=== PATIENT | female | born 1980 | race African-American/Black ===

== ENCOUNTER 2019-02-03 17:05 | Emergency (ER) | payer SELFPAY ==
[~2019-02-03] VITALS: Ht 170.2 cm; Wt 115.7 kg
[2019-02-03] MEDS ORDERED: fentaNYL INJECTION 100 MCG/2 ML AMP IM ONE (17:30)
[2019-02-03] MEDS ORDERED: methylPREDNISolone 125 MG (Solu-MEDROL) VIAL IM ONE (17:30)
--- NOTE | 2019-02-03 17:34 | ED Back Pain ---
General Chief Complaint: Back Problems Stated Complaint: BACK AND LEG PAIN Source of Information: Patient Exam Limitations: No Limitations History of Present Illness Date Seen by Provider: February 03, 2019 Time Seen by Provider: 17:30 Initial Comments This 38-year-old female presents with complaint of severe low back pain radiating into her right leg. The patient has had a CAT scan to her low back which demonstrated 3 bulging discs in the lumbar spine region. The patient is tried pain medication and muscle relaxants without permanent improvement. She is in the process of being seen by the neurosurgeons at . Her personal physician, Dr. Trevino, suggested a steroid shot for which she has come to the emergency department. Dr. Trevino will see the patient a week. The patient denies paralysis, urinary retention, or unremitting constipation. Allergies and Home Medications Allergies Coded Allergies: No Known Drug Allergies (Unverified , 02/03/19) Patient Home Medication List Home Medication List Reviewed: Yes Review of Systems Constitutional: No chills EENTM: no symptoms reported Respiratory: No cough Cardiovascular: No chest pain Gastrointestinal: constipation Genitourinary: No decreased output Musculoskeletal: see HPI, back pain Skin: No rash Psychiatric/Neurological: No Symptoms Reported Past Tjbcvux-Hkaons-Rcmipt Hx Past Med/Social Hx: Reviewed Nursing Past Med/Soc Hx Patient Social History Recent Foreign Travel: No Contact w/Someone Who Travel: No Physical Exam Vital Signs Capillary Refill : Height, Weight, BMI Height: '" Weight: lbs. oz. kg; BMI Method: General Appearance: WD/WN, Mild Distress HEENT: Normal ENT Inspection Neck: Normal Inspection Cardiovascular: Regular Rate, Rhythm Respiratory: Lungs Clear Gastrointestinal: Normal Bowel Sounds, Non Tender, Soft Extremity: Normal Inspection, Normal Range of Motion Neurologic/Psychiatric: Alert, Oriented x3, No Motor/Sensory Deficits, Normal Mood/Affect Skin: Normal Color, Warm/Dry Progress/Results/Core Measures Results/Orders My Orders Orders - LUANA YANEZ MD Methylprednisolone Sod Succ (Solu-Medrol (02/03/19 17:30) Fentanyl Injection (Sublimaze Injection (02/03/19 17:30) Progress Progress Note : Time: 17:33 Progress Note Patient was given 125 mg of Solu-Medrol and 50 g of fentanyl IM. Patient was placed on prednisone 40 mg daily for the next week until she can follow-up with her primary care physician. She was given Ultram 5200 mg every 4-6 hours for her pain. She was asked to return if any problems or questions. Departure Impression Primary Impression: Back pain Qualified Codes: M54.41 - Lumbago with sciatica, right side; G89.29 - Other chronic pain Disposition: HOME, SELF-CARE Condition: Improved Departure-Patient Inst. Decision time for Depature: 17:35 Referrals: ERIKA TREVINO MD (PCP) Primary Care Physician Patient Instructions: Low Back Pain (DC) Add. Discharge Instructions: Prednisone and Ultram as prescribed. Close follow-up with Dr. Trevino as scheduled next Friday. Return if any problems or questions. All discharge instructions reviewed with patient and/or family. Voiced understanding. Scripts Prednisone (Prednisone) 20 Mg Tab 40 MG PO DAILY for 7 Days, #6 TAB 0 Refills Prov: LUANA YANEZ MD 02/03/19 Tramadol HCl (Ultram) 50 Mg Tablet 50 MG PO Q4H PRN for PAIN-MODERATE TO SEVERE, #30 TAB Prov: LUANA YANEZ MD 02/03/19 LUANA YANEZ MD February 03, 2019 17:34
[2019-02-03] MEDS ORDERED: TRAM-42 PO (17:37)
[2019-02-03] MEDS ORDERED: PRD20T PO (17:37)
[2019-02-03 17:47] VITALS: BP 146/107
== END 2019-02-03 17:47 | disposition home or self-care (01) ==
LOC: ER FS 17:07
DX: M54.5 Low back pain (principal)
CPT/HCPCS: 96372; 99284

== ENCOUNTER 2019-03-03 11:00 | Emergency (ER) | payer MEDICAID, OTHER ==
[~2019-03-03] VITALS: Ht 172.7 cm; Wt 115.2 kg
[~2019-03-03 11:00] MED LIST: PRD20T PO; TRAM-42 PO
--- OUTSIDE RECORDS SUMMARY | 2019-03-03 11:12 | XMS REPORT | Continuity of Care Document ---
Author Organization Unknown Address Unknown Allergies Active Description Code Type Severity Reaction Onset Reported/Identified Relationship to Patient Clinical Status Yes No Known Drug Allergies [id number] Drug Allergy Unknown N/A 02/03/2019 Medications There is no data. Problems Date Dx Coded Attending Type Code Diagnosis Diagnosed By 02/05/2019 BEAU CHAUDHARY, LUANA Parada Ot M54.5 LOW BACK PAIN Procedures There is no data. Results There is no data. Encounters ACCT No. Visit Date/Time Discharge Status Pt. Type Provider Facility Loc./Unit Complaint [id number] 02/10/2019 09:30:00 02/10/2019 23:59:59 CLS Outpatient INGA, LILIANA Estrada [facility] [id number] 02/03/2019 17:07:00 02/03/2019 17:47:00 DIS Outpatient BEAU CHAUDHARY, LUANA Parada [facility] ER FS BACK AND LEG PAIN
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
[2019-03-03] MEDS ORDERED: LIDOCAINE/EPI 2% 1:100,00 (XYLOCAINE) 20 ML VIAL INJ ONE (11:30)
[2019-03-03] MEDS ORDERED: BUPIVACAINE 0.5% 30 ML (SENSORCAINE) VIAL INJ ONE (11:30)
[2019-03-03] MEDS ORDERED: methylPREDNISolone 40 MG/ML (DEPO MEDROL) VIAL IA ONE (11:30)
[2019-03-03 11:38] LABS: CLARITY,URINE CLEAR; COLOR,URINE YELLOW; PH,URINE 7.5 (5-9)
[2019-03-03 11:39] LABS: BACTERIA,URINE NEGATIVE /HPF; BILIRUBIN,URINE NEGATIVE (NEGATIVE); GLUCOSE, URINE (UA) NEGATIVE (NEGATIVE); KETONES,URINE NEGATIVE (NEGATIVE); LEUKOCYTE ESTERASE ,URINE NEGATIVE (NEGATIVE); NITRITE,URINE NEGATIVE (NEGATIVE); PROTEIN,URINE NEGATIVE (NEGATIVE); SQUAMOUS EPITHELIAL CELL,UR 0-2 /HPF; WBC,URINE 0-2 /HPF
[2019-03-03] MEDS ORDERED: PRD20T PO (11:48)
[2019-03-03] MEDS ORDERED: CYCL10TA9 PO (11:48)
[2019-03-03 11:58] VITALS: BP 153/107
== END 2019-03-03 11:58 | disposition home or self-care (01) ==
LOC: EDUNIT# 11:00 → ER FS 11:02
DX: M54.41 Lumbago with sciatica, right side (principal); F17.210 Nicotine dependence, cigarettes, uncomplicated; Z98.890 Other specified postprocedural states
CPT/HCPCS: 81000; 84703; 96372; 99284

== ENCOUNTER 2019-04-01 00:04 | Emergency (ER) | payer MEDICAID ==
[~2019-04-01] VITALS: Ht 170.2 cm; Wt 117.9 kg
[~2019-04-01 00:04] MED LIST changes: +CYCL10TA9 PO
--- OUTSIDE RECORDS SUMMARY | 2019-04-01 00:08 | XMS REPORT | Continuity of Care Document ---
Author Organization Unknown Address Unknown Allergies Active Description Code Type Severity Reaction Onset Reported/Identified Relationship to Patient Clinical Status Yes No Known Drug Allergies [id number] Drug Allergy Unknown N/A 02/03/2019 Medications There is no data. Problems Date Dx Coded Attending Type Code Diagnosis Diagnosed By 02/03/2019 LUANA YANEZ MD Ot M54.5 LOW BACK PAIN 02/05/2019 LUANA YANEZ MD Ot M54.5 LOW BACK PAIN 03/03/2019 JOHAN RODRIGUES MD J Ot F17.210 NICOTINE DEPENDENCE, CIGARETTES, UNCOMPL 03/03/2019 JOHAN RODRIGUES MD Ot M54.41 LUMBAGO WITH SCIATICA, RIGHT SIDE 03/03/2019 JOHAN RODRIGUES MD Ot M54.5 LOW BACK PAIN 03/03/2019 JOHAN RODRIGUES MD Ot Z98.890 OTHER SPECIFIED POSTPROCEDURAL STATES 03/05/2019 JOHAN RODRIGUES MD Ot F17.210 NICOTINE DEPENDENCE, CIGARETTES, UNCOMPL 03/05/2019 JOHAN RODRIGUES MD Ot M54.41 LUMBAGO WITH SCIATICA, RIGHT SIDE 03/05/2019 JOHAN RODRIGUES MD Ot M54.5 LOW BACK PAIN 03/05/2019 JOHAN RODRIGUES MD J Ot Z98.890 OTHER SPECIFIED POSTPROCEDURAL STATES Procedures There is no data. Results Test Result Range Urine beta human chorionic gonadotropin (hCG) measurement - 03/03/19 11:05 Urine beta human chorionic gonadotropin (hCG) measurement NEGATIVE NEGATIVE Complete urinalysis with reflex to culture - 03/03/19 11:05 Urine color determination YELLOW NRG Urine clarity determination CLEAR NRG Urine pH measurement by test strip 7.5 5-9 Specific gravity of urine by test strip 1.015 1.016-1.022 Urine protein assay by test strip, semi-quantitative NEGATIVE NEGATIVE Urine glucose detection by automated test strip NEGATIVE NEGATIVE Erythrocytes detection in urine sediment by light microscopy NEGATIVE NEGATIVE Urine ketones detection by automated test strip NEGATIVE NEGATIVE Urine nitrite detection by test strip NEGATIVE NEGATIVE Urine total bilirubin detection by test strip NEGATIVE NEGATIVE Urine urobilinogen measurement by automated test strip (mass/volume) 1.0 mg/dL NORMAL Urine leukocyte esterase detection by dipstick NEGATIVE NEGATIVE Automated urine sediment erythrocyte count by microscopy (number/high power field) NONE NRG Automated urine sediment leukocyte count by microscopy (number/high power field) [HPF] NRG Bacteria detection in urine sediment by light microscopy NEGATIVE NRG Squamous epithelial cells detection in urine sediment by light microscopy 0-2 NRG Crystals detection in urine sediment by light microscopy NONE NRG Casts detection in urine sediment by light microscopy NONE NRG Mucus detection in urine sediment by light microscopy SMALL NRG Complete urinalysis with reflex to culture NO NRG GC/CHLAMYDIA (SWAB OR URINE)-RAPID - 03/04/19 16:38 CHLAMYDIA TRACHOMATIS RNA, TMA NOT DETECTED NOT DETECTED NEISSERIA GONORRHOEAE RNA, TMA NOT DETECTED NOT DETECTED COMMENT NRG Encounters ACCT No. Visit Date/Time Discharge Status Pt. Type Provider Facility Loc./Unit Complaint [id number] 03/22/2019 16:00:00 03/22/2019 23:59:59 [facility] Outpatient SELF, LILIANA Estrada [facility] [id number] 03/04/2019 16:15:00 Document Registration [id number] 03/03/2019 11:02:00 03/03/2019 11:58:00 DIS Emergency JOHAN RODRIGUES MD Via [facility] ER FS BACK PAIN [id number] 02/03/2019 17:07:00 02/03/2019 17:47:00 DIS Emergency LUANA YANEZ MD Via [facility] ER FS BACK AND LEG PAIN [id number] 04/01/2019 00:05:00 ACT Emergency ELMA CARD DO Via [facility] ER FS BACK PAIN, RT LEG PAIN
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
[2019-04-01] MEDS ORDERED: oxyCODONE/APAP 5/325MG (PERCOCET 5) TABLET ONE (00:29)
[2019-04-01] MEDS ORDERED: oxyCODONE/APAP 10/325MG (PERCOCET 10) TABLET PO ONE (00:30)
[2019-04-01] MEDS ORDERED: METH4TAB PO (00:30)
--- NOTE | 2019-04-01 00:31 | ED Back Pain ---
General Chief Complaint: Back Problems Stated Complaint: BACK PAIN, RT LEG PAIN Nursing Triage Note: Patient is complaining of back pain that radiates down her right leg. Patient is tearful and states she was at physical therapy today for a bulging disc. Pain has progressively gotten worse since then. Patient has taken Ibuprofen, Flexiril and Tramadol NUTRITION INSTRUCTOR with no relief. Nursing Sepsis Screen: No Definite Risk Source of Information: Patient Exam Limitations: No Limitations History of Present Illness Date Seen by Provider: Apr 01, 2019 Time Seen by Provider: 00:15 Initial Comments Patient is a 38 year-old female with history of chronic back pain with herniated disks. Patient takes tramadol, ibuprofen and muscle relaxers for treatment of back pain. This morning she completed physical therapy for the first time and reports persistent right lower sacroiliac pain since that time. Pain is worse with palpation and movement and ambulation. Pain is nonradiating. It is not associated motor weakness or loss of sensation. No other acute symptoms or complaints. Timing/Duration: Getting Worse, Other Pain/Injury Location: Back Modifying Factors: Improves With Pain Medication, Improves With Rest Associated Symptoms: muscle spasms; No tingling in legs/feet, No sensory/motor loss; lower back pain; No loss of bladder control, No loss of bowel control Allergies and Home Medications Allergies Coded Allergies: No Known Drug Allergies (Unverified , 02/03/19) Home Medications Cyclobenzaprine HCl 10 Mg Tablet, 10 MG PO Q8H PRN for SPASMS Prescribed by: JOHAN RODRIGUES on 03/03/19 1148 Prednisone 20 Mg Tab, 40 MG PO DAILY Prescribed by: LUANA YANEZ MD on 02/03/19 1730 Prednisone 20 Mg Tab, 40 MG PO DAILY Prescribed by: JOHAN RODRIGUES on 03/03/19 1148 Tramadol HCl 50 Mg Tablet, 50 MG PO Q4H PRN for PAIN-MODERATE TO SEVERE Prescribed by: LUANA YANEZ MD on 02/03/19 1736 Patient Home Medication List Home Medication List Reviewed: Yes Review of Systems Constitutional: no symptoms reported EENTM: no symptoms reported Respiratory: no symptoms reported Cardiovascular: no symptoms reported Gastrointestinal: no symptoms reported Genitourinary: no symptoms reported Musculoskeletal: back pain Skin: no symptoms reported Psychiatric/Neurological: Anxiety Past Pgwhvew-Ohnlmh-Ndevmt Hx Patient Social History Alcohol Use: Denies Use Recreational Drug Use: No Smoking Status: Current Everyday Smoker Type Used: Cigarettes 2nd Hand Smoke Exposure: Yes Recent Foreign Travel: No Contact w/Someone Who Travel: No Recent Infectious Disease Expo: No Recent Hopitalizations: No Physical Abuse: No Sexual Abuse: No Mistreated: No Fear: No Seasonal Allergies Seasonal Allergies: No Past Medical History Surgeries: Yes Section Respiratory: No Cardiac: No Neurological: No Genitourinary: No Gastrointestinal: No Musculoskeletal: No Chronic Back Pain Endocrine: No HEENT: No Cancer: No Psychosocial: No Integumentary: No Blood Disorders: No Adverse Reaction/Blood Tranf: No Physical Exam Vital Signs Vital Signs - First Documented 04/01/19 00:09 Temp 97.2 Pulse 113 Resp 26 B/P (MAP) 190/100 (130) Pulse Ox 97 O2 Delivery Room Air Capillary Refill : Less Than 3 Seconds Height, Weight, BMI Height: 5'7.00" Weight: 260lbs. 0oz. 117.220622pg; BMI Method:Stated General Appearance: Anxious, Mild Distress HEENT: PERRL/EOMI Neck: Normal Inspection, Supple Respiratory: Lungs Clear Back: No CVA Tenderness; No CVA Tenderness (L); Decreased Range of Motion, Muscle Spasm; No Vertebral Tenderness, No Other (right sacroiliac pain, tenderness, negative straight leg raising) Extremity: Normal Capillary Refill, Normal Inspection Neurologic/Psychiatric: Alert, Oriented x3 Progress/Results/Core Measures Results/Orders My Orders Orders - ELMA CARD DO Oxycodone/Acet 10/325mg Tablet (Percocet (04/01/19 00:30) Vital Signs/I&O 04/01/19 00:09 Temp 97.2 Pulse 113 Resp 26 B/P (MAP) 190/100 (130) Pulse Ox 97 O2 Delivery Room Air Blood Pressure Mean: 130 Departure Communication (Admissions) Exacerbation of chronic back pain. Percocet given. Will discharge home with Medrol Dosepak with instructions to follow up with PCP prior to resuming physical therapy Impression Primary Impression: Acute lumbar back pain Disposition: HOME, SELF-CARE Condition: Improved Departure-Patient Inst. Referrals: ERIKA TREVINO MD (PCP/Family) Primary Care Physician Patient Instructions: Low Back Pain (DC) Add. Discharge Instructions: Please fill Medrol Dosepak tomorrow morning. Contact your PCP with instructions regarding when to resume physical therapy. All discharge instructions reviewed with patient and/or family. Voiced unders tanding. Scripts Methylprednisolone (Medrol) 4 Mg Tab.ds.pk 4 MG PO UD for 6 Days, #21 PKG PER DOSE PACK INSTRUCTIONS Prov: ELMA CARD DO 04/01/19 ELMA CARD DO Apr 01, 2019 00:31
[2019-04-01 00:38] VITALS: BP 162/92
[2019-04-01] MEDS ORDERED: oxyCODONE/APAP 5/325MG (PERCOCET 5) TABLET PO ONE (00:45)
== END 2019-04-01 00:37 | disposition home or self-care (01) ==
LOC: EDUNIT# 00:04 → ER FS 00:05
DX: M54.5 Low back pain (principal); G89.29 Other chronic pain; M51.36 Other intervertebral disc degeneration, lumbar region; F17.210 Nicotine dependence, cigarettes, uncomplicated
CPT/HCPCS: 99283

== ENCOUNTER 2019-04-09 14:20 | Emergency (ER) | payer MEDICAID ==
[~2019-04-09] VITALS: Ht 170.2 cm; Wt 118.4 kg
[~2019-04-09 14:20] MED LIST changes: +METH4TAB PO
[2019-04-09] MEDS ORDERED: morphine INJ 10 MG/ML 1ML (SYR OR VIAL) IM STA (15:27)
[2019-04-09] MEDS ORDERED: KETOROLAC 60 MG/2 ML VIAL IM ONE (15:30)
[2019-04-09] MEDS ORDERED: DIAZEPAM 5 MG (VALIUM) TABLET PO SCH (15:30)
--- NOTE | 2019-04-09 15:43 | ED Back Pain ---
General Chief Complaint: Back Problems Stated Complaint: BACK/RT LEG PAIN Nursing Triage Note: Patient is complaining of back pain that is radiating down R leg. Has been seeing dr hutson at and has an appointment to see him again next week. Just finished two weeks of PT for her back and states the next thing dr hutson is going to do is epidural shots. Pain is currently rated at 10/10 and has taken flexeril, ibuprofen, and tramadol with no relief. Nursing Sepsis Screen: No Definite Risk History of Present Illness Date Seen by Provider: Apr 09, 2019 Time Seen by Provider: 15:20 Initial Comments Patient is a 38-year-old female who presents to the emergency department today complaining of severe right-sided low back pain. The patient has a history of chronic low back pain. She is normally followed at [facility]. She has recently undergone physical therapy which she states seems to worsen her symptoms. She has frequent ER visits for her uncontrolled pain. She was seen by her doctor yesterday and given a shot of Toradol which did improve her symptoms temporarily. Today, she took Flexeril, tramadol, and ibuprofen and states these did not improve her pain symptoms. She complains of pain over the right buttock. She also describes some symptoms over the right side consistent with meralgia paresthetica. No new symptoms other than pain. No new numbness, tingling, weakness. No fever. No difficulty with elimination. Patient no longer has menstrual cycles over the last 2 years. Allergies and Home Medications Allergies Coded Allergies: No Known Drug Allergies (Unverified , 02/03/19) Home Medications Cyclobenzaprine HCl 10 Mg Tablet, 10 MG PO Q8H PRN for SPASMS Prescribed by: JOHAN RODRIGUES on 03/03/19 1148 Diazepam 5 Mg Tablet, 5 MG PO BID PRN PRN for MUSCLE SPASMS Prescribed by: JOSÉ MIGUEL WAGONER on 04/09/19 1612 Methylprednisolone 4 Mg Tab.ds.pk, 4 MG PO UD PER DOSE PACK INSTRUCTIONS Prescribed by: ELMA CARD on 04/01/19 0030 Oxycodone HCl/Acetaminophen 1 Each Tablet, 2 TAB PO Q6H PRN for PAIN-SEVERE Prescribed by: JOSÉ MIGUEL WAGONER on 04/09/19 1612 Prednisone 20 Mg Tab, 40 MG PO DAILY Prescribed by: LUANA YANEZ MD on 02/03/19 1737 Prednisone 20 Mg Tab, 40 MG PO DAILY Prescribed by: JOHAN RODRIGUES on 03/03/19 1148 Tramadol HCl 50 Mg Tablet, 50 MG PO Q4H PRN for PAIN-MODERATE TO SEVERE Prescribed by: LUANA YANEZ MD on 02/03/19 1737 Patient Home Medication List Home Medication List Reviewed: Yes Review of Systems Constitutional: no symptoms reported EENTM: no symptoms reported Respiratory: no symptoms reported Cardiovascular: no symptoms reported Gastrointestinal: no symptoms reported Genitourinary: no symptoms reported : No Musculoskeletal: see HPI Skin: no symptoms reported Psychiatric/Neurological: No Symptoms Reported Past Dgkfrxw-Odytth-Guugla Hx Patient Social History Alcohol Use: Denies Use Recreational Drug Use: No Smoking Status: Current Everyday Smoker Type Used: Cigarettes 2nd Hand Smoke Exposure: Yes Recent Foreign Travel: No Contact w/Someone Who Travel: No Recent Infectious Disease Expo: No Recent Hopitalizations: No Physical Abuse: No Sexual Abuse: No Mistreated: No Fear: No Seasonal Allergies Seasonal Allergies: No Past Medical History Surgeries: Yes (metal plates in jaw) Section, Orthopedic Respiratory: No Cardiac: No Neurological: No Genitourinary: No Gastrointestinal: No Musculoskeletal: Yes Chronic Back Pain Endocrine: No HEENT: No Cancer: No Psychosocial: No Integumentary: No Blood Disorders: No Adverse Reaction/Blood Tranf: No Physical Exam Vital Signs Vital Signs - First Documented 04/09/19 14:49 Temp 97.4 Pulse 115 Resp 18 B/P (MAP) 138/108 (118) Pulse Ox 98 Capillary Refill : Less Than 3 Seconds Height, Weight, BMI Height: 5'7.00" Weight: 261lbs. 0oz. 118.225882yf; BMI Method:Stated General Appearance: WD/WN, Obese, Other (significant distress with antalgic gait and antalgic movements) HEENT: PERRL/EOMI Neck: Full Range of Motion Cardiovascular: Regular Rate, Rhythm Respiratory: Lungs Clear Back: Normal Inspection, No CVA Tenderness, No Vertebral Tenderness Progress/Results/Core Measures Results/Orders My Orders Orders - JOSÉ MIGUEL WAGONER DO Ketorolac Injection (Toradol Injection) (04/09/19 15:30) Morphine Injection (Morphine Injection (04/09/19 15:27) Diazepam Tablet (Valium Tablet) (04/09/19 15:30) Medications Given in ED Current Medications Medications Dose Ordered Sig/Billy Route Start Time Stop Time Status Last Admin Dose Admin Ketorolac Tromethamine 60 mg ONCE ONCE IM 04/09/19 15:30 04/09/19 15:31 DC 04/09/19 15:49 60 MG Vital Signs/I&O 04/09/19 14:49 Temp 97.4 Pulse 115 Resp 18 B/P (MAP) 138/108 (118) Pulse Ox 98 Blood Pressure Mean: 118 Progress Progress Note : Time: 15:30 Progress Note Patient is seen and examined. She does seem to have significant pain. She has no midline spinal tenderness to palpation. She does have palpable muscle spasm and pain over the lower right lumbar area. She has no red flag findings on her history of present illness or review of systems or physical exam. Patient presents with classic acute on chronic low back pain. She did not have any new trauma or injury. Her medications at home have not been working. In the ER, I ordered for her to have a dose of intramuscular morphine and 1 by mouth Valium. We will give her another injection of Toradol here as well. Of note, this patient is taking both Flexeril and tramadol. Both of these medications can increase risk for seizure and the seizure risk is compounded when they are both taken together. I advised the patient to stop using his medications simultaneously. 16:10: Patient is currently beginning to feel improved. She will contact a friend to pick her up for a ride home. Plan is for discharge home. The patient's current medication regimen is not working for her. I am giving her some Percocet and Valium to use at home. I advised her of the risks of these medications including oversedation as well as addiction. I advised her to only use these medications when her pain was so severe that she felt the need to come to the ER in an attempt to reduce her ER visits. Otherwise, she was recommended to follow up with her primary care doctor for ongoing management. The patient has been treated frequently with steroids and I did not give her any today. She does continue to take ibuprofen. All of her questions were answered prior to discharge home and she was subjectively feeling better at the time of discharge. Departure Impression Primary Impression: Back pain Disposition: 01 HOME, SELF-CARE Condition: Improved Departure-Patient Inst. Referrals: ERIKA TREVINO MD (PCP/Family) Primary Care Physician Scripts Diazepam (Valium) 5 Mg Tablet 5 MG PO BID PRN PRN for MUSCLE SPASMS, #20 TAB 0 Refills Prov: JOSÉ MIGUEL WAGONER DO 04/09/19 Oxycodone HCl/Acetaminophen (Percocet 5-325 mg Tablet) 1 Each Tablet 2 TAB PO Q6H PRN for PAIN-SEVERE MDD 6 for 7 Days, #30 TAB 0 Refills Prov: JOSÉ MIGUEL WAGONER DO 04/09/19 JOSÉ MIGUEL WAGONER DO Apr 09, 2019 15:43
[2019-04-09] MEDS ORDERED: OXYC-199 PO (16:12)
[2019-04-09] MEDS ORDERED: DIAZ5TAB PO (16:12)
[2019-04-09 16:35] VITALS: BP 122/76
--- OUTSIDE RECORDS SUMMARY | 2019-04-09 20:53 | XMS REPORT | Continuity of Care Document ---
Author Organization Unknown Address Unknown Allergies Active Description Code Type Severity Reaction Onset Reported/Identified Relationship to Patient Clinical Status Yes No Known Drug Allergies [id number] Drug Allergy Unknown N/A 02/03/2019 Medications There is no data. Problems Date Dx Coded Attending Type Code Diagnosis Diagnosed By 02/03/2019 LUANA YANEZ MD Ot M54.5 LOW BACK PAIN 02/05/2019 LUANA YANEZ MD Ot M54.5 LOW BACK PAIN 03/03/2019 JOHAN RODRIGUES MD Ot F17.210 NICOTINE DEPENDENCE, CIGARETTES, UNCOMPL 03/03/2019 [...] MD Ot M54.5 LOW BACK PAIN 03/05/2019 LILIA CHAUDHARY, JOHAN Estrada Ot Z98.890 OTHER SPECIFIED POSTPROCEDURAL STATES 04/07/2019 ELMA CARD DO Ot F17.210 NICOTINE DEPENDENCE, CIGARETTES, UNCOMPL 04/07/2019 ELMA CARD DO Ot G89.29 OTHER CHRONIC PAIN 04/07/2019 ELMA CARD DO Ot M51.36 OTHER INTERVERTEBRAL DISC DEGENERATION, 04/07/2019 ELMA CARD DO, Ot M54.5 LOW BACK PAIN Procedures There is no data. Results Test [...] Status Pt. Type Provider Facility Loc./Unit Complaint [id number] 04/08/2019 14:00:00 [facility] [id number] 03/04/2019 16:15:00 Document Registration [id number] 04/09/2019 14:22:00 04/09/2019 16:35:00 DIS Emergency JOSÉ MIGUEL WAGONER DO [facility] ER FS BACK/RT LEG PAIN [id number] 04/01/2019 00:05:00 04/01/2019 00:37:00 DIS Outpatient ELMA CARD DO [facility] ER FS BACK PAIN, RT LEG PAIN [id number] 03/03/2019 11:02:00 03/03/2019 11:58:00 DIS Emergency JOHAN RODRIGUES MD [facility] ER FS BACK PAIN [id number] 02/03/2019 17:07:00 02/03/2019 17:47:00 DIS Emergency BEAU CHAUDHARY, LUANA Parada [facility] ER FS BACK AND LEG PAIN
[2019-04-11] MEDS ORDERED: PHENTERMINE HCL (17:31)
== END 2019-04-09 16:35 | disposition home or self-care (01) ==
LOC: EDUNIT# 14:20 → ER FS 14:22
DX: M54.5 Low back pain (principal); F17.210 Nicotine dependence, cigarettes, uncomplicated; Z79.52 Long term (current) use of systemic steroids
CPT/HCPCS: 96372; 99284

== ENCOUNTER 2019-04-11 14:12 | Emergency (ER) | payer MEDICAID | END 2019-04-11 16:30 | disposition home or self-care (01) | LOC: ER FS 14:12 ==

== ENCOUNTER → 2020-01-10 | Outpatient (CLI) | payer MEDICAID ==
[~2020-01-10] MED LIST changes: +DIAZ5TAB PO; +OXYC-199 PO; +PHENTERMINE HCL
--- NOTE | 2020-01-10 11:58 | Diagnostic Imaging Report ---
INDICATION: Wrist pain. Prior fracture. COMPARISON: None available. TECHNIQUE: 3 views of the left wrist were obtained. FINDINGS: No acute fracture or malalignment. Old nonunited fracture involving the tip of the ulnar styloid. No features of osteonecrosis of the lunate. No soft tissue swelling. IMPRESSION: 1. No acute osseous abnormality around the left wrist. 2. Old nonunited fracture involving the tip of the ulnar styloid. Dictated by: Dictated on workstation # [id number]
== END ==
LOC: RAD FS 11:27
PROVIDERS: ATTEND Family Medicine
DX: S52.612K Displaced fracture of left ulna styloid process, subsequent encounter for closed fracture with nonunion (principal); M25.531 Pain in right wrist
CPT/HCPCS: 73110

== ENCOUNTER 2021-07-27 10:44 | Emergency (ER) | payer MEDICAID ==
[~2021-07-27] VITALS: Ht 172.7 cm; Wt 116.0 kg
--- OUTSIDE RECORDS SUMMARY | 2021-07-27 10:49 | XMS REPORT | Encounter Summary ---
Author Author [facility] Organization [facility] Address Unknown Phone Unavailable Care Team Providers Care Sales Representative Adding Machines Name Role Phone Hawk Baker MD Unavailable Kanu Leon MD Unavailable Unavailable Westley Chavez MD Unavailable Castillo Bang MD PCP Encounter Details Care Team Description Date Type Department 07/09/2021 Travel Social History Date Tobacco Use Types Packs/Day Years Used Current Every Day Smoker Cigarettes 1 15 Smokeless Tobacco: Never Used Comments Alcohol Use Standard Drinks/Week No 0 (1 standard drink = 0.6 o z pure alcohol) Sex Assigned at Date Recorded Not on file Date Recorded COVID-19 Exposure Response 07/09/2021 12:51 PM CDT In the last month, have you been in contact with No / Unsure someone who was confirmed or suspected to have Coronavirus / COVID-19? documented as of this encounter Functional Status Date of Assessment Functional Status Response 04/12/2019 Does the patient have a hearing impairment: No 04/12/2019 Does the patient have a visual impairment: No 04/12/2019 Does the patient have impaired ambulation: Yes 04/12/2019 Does the patient have an activity of daily living No (ADL) impairment: 04/12/2019 Does the patient have an instrumental activity of No daily living (IADL) impairment: Date of Assessment Cognitive Status Response 04/12/2019 Does the patient have a cognitive impairment: No documented as of this encounter Plan of Treatment Not on filedocumented as of this encounter Visit Diagnoses Not on filedocumented in this encounter Additional Health Concerns Assessment Noted Time A fall risk assessment has been completed for the pat ient 04/12/2019 10:00 AM CDT documented as of this encounter
--- OUTSIDE RECORDS SUMMARY | 2021-07-27 10:49 | XMS REPORT | Clinical Summary ---
Author Author [facility] Organization [facility] Address Unknown Phone Unavailable Care Team Providers Care Entry Level Account Executive Name Role Phone Hawk Baker MD Unavailable Kanu Leon MD Unavailable Unavailable Westley Chavez MD Unavailable Castillo Bang MD PCP Source Comments Some departments are not documenting in the electronic medical record. If you d o not see the information that you expected, contact Release of Information in [facility] [employer] Information Management department at [phone] for further assistan ce in locating additional records.[facility] Allergies Comments Active Allergy Reactions Severity Noted Date Erythromycin-Sulfisoxazol RASH Medium 02/20 e Medications End Date Status Medication Sig Dispensed Refills Start Date Active ibuprofen (MOTRIN) 800 mg Take 800 mg 0 tablet by mouth every 6 hours as needed for Pain. Take with food. Active diazePAM (VALIUM) 5 mg TAKE 1 TABLET 0 04/10/2 01 tablet BY MOUTH 9 TWICE DAILY NEEDED FOR MUSCLE SPASMS Active phentermine(+) (ADIPEX-P) Take 37.5 mg 0 37.5 mg tablet by mouth every morning. Active oxyCODONE-acetaminophen(+ Take 1-2 0 ) (PERCOCET; ENDOCET) tablets by 7.5-325 mg tablet mouth every 4 hours as needed Active amLODIPine (NORVASC) 10 Take 10 mg by 0 02/25/ 201 mg tablet mouth daily. 8 Active estradioL (ESTRACE) 1 mg every 24 0 01/25 tablet hours. 0 Active hydroCHLOROthiazide every 24 0 (HYDRODIURIL) 25 mg hours. 8 tablet Active Problems Problem Noted Date Sensorineural hearing loss, bilateral 07/09/2021 Lumbosacral strain 03/08/2019 Degenerative disc disease, lumbar 03/08/2019 Class 3 severe obesity due to excess calories with amish dy mass index (BMI) of 03/08/2019 40.0 to 44.9 in adult Anemia 03/26/2008 03/25/2008 Encounters Care Team Description Date Type Specialty Nichole Braga Records Request 07/18/2021 Telephone Cardiology Carlos Valente MD Sensorineural hearing loss, bilateral 07/09/2021 Office Visit Otolaryngology Carlos Valente MD Hanneman, Rebecca L, AUD Auditory complaints of left ear (Primary Dx); Sensory hearing loss, bilateral 07/09/2021 Clinical Otolaryngology Support 07/09/2021 Travel from Last 3 Months Surgical History Surgery Date Site/Laterality Comments FACIAL RECONSTRUCTION 09/22/1999 - SURGERY 09/21/2000 SECTION 2002,2007 x2 TUBAL LIGATION 09/22/2007 - 09/21/2008 Medical History Medical History Date Comments Essential hypertension Family History Medical History Relation Name Comments Cancer Mother Guerline reed Relation Name Status Comments Father Alive Mother Guerline reed Social History Date Tobacco Use Types Packs/Day [...] or suspected to have Coronavirus / COVID-19? History Length Weight Head Circum Gestation D/C Weight APGA Deli Fee d Age Rs very ing Meth od 1min 5min : 9 : 9 Obstetrics History Term Pre Abrt (TAB) (SAB) (Ect) Mult Lvng Comments Grav Para 1 1 1 0 2 1 Date GA Total Labor Labor/2nd/3rd Weight Sex Delivery Anes PTL Digna A1 A5 Name Clin Outcome SAB Term Last Filed Vital Signs Reading Time Taken Comments Vital Sign 139/97 07/09/2021 1:27 PM CDT Blood Pressure 80 07/09/2021 1:27 PM CDT Pulse 37 C (98.6 F) 04/12/2019 9:53 AM CDT Temperature - - Respiratory Rate 100% 04/12/2019 9:53 AM CDT Oxygen Saturation - - Inhaled Oxygen Concentration 115.4 kg (254 lb 6.4 oz) 07/09/2021 1:27 PM CDT Weight 172.7 cm (5' 8") 07/09/2021 1:27 PM CDT Height 38.68 07/09/2021 1:27 PM CDT Body Mass Index Plan of Treatment Health Maintenance Due Date Last Done Comments DTAP/TDAP VACCINES (1 - 1998 Tdap) HEPATITIS C SCREENING 1998 PHYSICAL (COMPREHENSIVE) 1998 EXAM CERVICAL CANCER SCREENING 2001 BREAST CANCER SCREENING 2020 INFLUENZA VACCINE 04/22/2021 HIV SCREENING Completed 03/24/2008 Procedures Comments Procedure Name Priority Date/Time Associated Diag nosis AUDITORY FUNCTION TESTS Routine 07/09/2021 Audito ry complaints of left ear from Last 3 Months Results * AUDITORY FUNCTION TESTS (07/09/2021) Narrative Performed At This result has an attachment that is n ot available. 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
--- OUTSIDE RECORDS SUMMARY | 2021-07-27 10:49 | XMS REPORT | Encounter Summary ---
Author Author [facility] Organization [facility] Address Unknown Phone Unavailable Care Team Providers Care Tour Director Name Role Phone Hawk Baker MD Unavailable Kanu Leon MD Unavailable Unavailable Westley Chavez MD Unavailable Castillo Bang MD PCP Reason for Visit * Reason Comments Ear Evaluation Encounter Details Care Team Description Date Type Department Carlos Valente MD [address] [facility] [address] [place], [place] [id number] Raven Yang, AUD [address] [place] [address] [phone] Auditory complaints of left ear (Primary Dx); Sensory hearing loss, bilateral 07/09/2021 Clinical Otolaryngology: Rema vaughan [facility], [facility] [address] [place] [address] Social History Date Tobacco Use Types Packs/Day [...] Not on filedocumented as of this encounter Procedures Comments Procedure Name Priority Date/Time Associated Diag nosis AUDITORY FUNCTION TESTS Routine 07/09/2021 Audito ry complaints of left ear documented in this encounter Visit Diagnoses Diagnosis Auditory complaints of left ear - Prima ry Sensory hearing loss, bilateral documented in this encounter Orders First Ordered Date Procedures Count Last Ordered Date AUDITORY FUNCTION TESTS 1 07/09/2021 documented in this encounter Additional Health Concerns Assessment Noted Time A fall risk assessment has been completed for the pat ient 04/12/2019 10:00 AM CDT documented as of this encounter
--- OUTSIDE RECORDS SUMMARY | 2021-07-27 10:49 | XMS REPORT | Encounter Summary ---
Author Author [facility] Organization [facility] Address Unknown Phone Unavailable Care Team Providers Care Co Teacher Name Role Phone Hawk Baker MD Unavailable Kanu Leon MD Unavailable Unavailable Westley Chavez MD Unavailable Castillo Bang MD PCP Reason for Visit * Reason Comments Ear Fullness Encounter Details Care Team Description Date Type Department Carlos Valente MD [address] [facility] [address] [place] [address] Sensorineural hearing loss, bilateral 07/09/2021 Office Visit Otolaryngology: [facility] [address], [address] [place] [address] Social History Date Tobacco Use [...] / COVID-19? documented as of this encounter Last Filed Vital Signs Reading Time Taken Comments Vital Sign 139/97 07/09/2021 1:27 PM CDT Blood Pressure 80 07/09/2021 1:27 PM CDT Pulse - - Temperature - - Respiratory Rate - - Oxygen Saturation - - Inhaled Oxygen Concentration 115.4 kg (254 lb 6.4 oz) 07/09/2021 1:27 PM CDT Weight 172.7 cm (5' 8") 07/09/2021 1:27 PM CDT Height 38.68 07/09/2021 1:27 PM CDT Body Mass Index documented in this encounter Functional Status Date of Assessment [...] impairment: No documented as of this encounter Progress Notes * Carlos Valente MD - 07/09/2021 1:40 PM CDT Date of Service: 07/09/2021 Subjective: Tk Bridges is a 41 y.o. female. History of Present Illness She is here for evaluation of her ears. She noted 2 years ago that she was with breathing and having difficulty hearing. She had a hearing test and is wearing a hearing aid on the left side for about a year. Lately she is noted increased ringing. It seems like it almost constantly the right side. It does not keep her awake. No significant otologic history as far as noise of infection or fami ly history of hearing problems. Review of Systems Constitutional: Negative. HENT: Negative. Eyes: Negative. Respiratory: Negative. Cardiovascular: Negative. Gastrointestinal: Negative. Endocrine: Negative. Genitourinary: Negative. Musculoskeletal: Negative. Skin: Negative. Allergic/Immunologic: Negative. Neurological: Negative. Hematological: Negative. Psychiatric/Behavioral: Negative. Objective: amLODIPine (NORVASC) 10 mg tablet Take 10 mg by mouth daily. diazePAM (VALIUM) 5 mg tablet TAKE 1 TABLET BY MOUTH TWICE DAILY NEEDED F OR MUSCLE SPASMS estradioL (ESTRACE) 1 mg tablet every 24 hours. hydroCHLOROthiazide (HYDRODIURIL) 25 mg tablet every 24 hours. ibuprofen (MOTRIN) 800 mg tablet Take 800 mg by mouth every 6 hours as neede d for Pain. Take with food. oxyCODONE-acetaminophen(+) (PERCOCET; ENDOCET) 7.5-325 mg tablet Take 1-2 ta blets by mouth every 4 hours as needed phentermine(+) (ADIPEX-P) 37.5 mg tablet Take 37.5 mg by mouth every morning . Vitals: 07/09/21 1327 Weight: 115.4 kg (254 lb 6.4 oz) Height: 172.7 cm (68") Body mass index is 38.68 kg/m. Physical Exam Constitutional: She appears well-developed and well-nourished. HENT: Normal voice Head: Normocephalic and atraumatic. Right Ear: Tympanic membrane, external ear and ear canal normal. No drainage, sw elling or tenderness. No middle ear effusion. Left Ear: Tympanic membrane, external ear and ear canal normal. No drainage, swe lling or tenderness. No middle ear effusion. Eyes: EOM and lids are normal. Neck: Trachea normal, normal range of motion and phonation normal. No thyromegal y present. No adenopathy. Salivary Glands: normal Cranial nerves: 2-12 normal Testing: Audio date 07/09/2021 Right 32/32 dB 100% Left 37/32 dB 100% Normal tympanometry. There is a fairly symmetric pattern of normal going to a moderate sensorineural hearing loss. Is a cookie bite type formation starting after 1000. Assessment and Plan: This is a 41-year-old with bilateral hearing loss. She has a hearing aid on the left side. She has never been fully diagnosed or examined she said. No family history of hearing loss and no other significant otologic history. She has a b ilateral cookie bite high-frequency hearing loss. We discussed amplification fo r both ears and periodic retesting. documented in this encounter Plan of Treatment Not on filedocumented as of this encounter Visit Diagnoses Diagnosis Sensorineural hearing loss, bilateral documented in this encounter Historical Medications * This list may reflect changes made after this encounter. Start Date End Date Medication Sig Dispensed Refills 02/11/2018 hydroCHLOROthiazide every 24 0 (HYDRODIURIL) 25 mg hours. tablet 01/26/2020 estradioL (ESTRACE) 1 mg every 24 0 tablet hours. 02/25/2018 amLODIPine (NORVASC) 10 Take 10 mg by 0 mg tablet mouth daily. added in this encounter Additional Health Concerns Assessment Noted Time A fall risk assessment has been completed for the pat ient 04/12/2019 10:00 AM CDT documented as of this encounter
--- OUTSIDE RECORDS SUMMARY | 2021-07-27 10:49 | XMS REPORT | Encounter Summary ---
Author Author [facility] Organization [facility] Address Unknown Phone Unavailable Care Team Providers Care Hat Brim Curler Name Role Phone Hawk Baker MD Unavailable Kanu Leon MD Unavailable Unavailable Westley Chavez MD Unavailable Castillo Bang MD PCP Reason for Visit * Reason Onset Date Comments Records Request 07/18/2021 Encounter Details Care Team Description Date Type Department Nichole Braga Records Request 07/18/2021 Telephone The [address] [address] Social History Date Tobacco Use Types Packs/Day [...] impairment: No documented as of this encounter Miscellaneous Notes * Telephone Encounter - Priya Whiteside - 07/26/2021 4:41 PM CDT 07/26/21- Received back from Dr Chetna Kinsey's office - no records found- no rec ords sent. Thank you, Priya Lawrence client server developer - Cardiovascular Medicine [address] [address] * Telephone Encounter - Priya Whiteside - 07/23/2021 2:36 PM CDT 07/23/21- Records Received from Dr Castillo Bang have been scanned to chart and av ailable in the OnBase button. Thank you, Priya Lawrence client server developer - Cardiovascular Medicine [address] [address] * Telephone Encounter - Nichole Braga - 07/18/2021 11:17 AM CDT 07/18/21 Records requested per staff message edh Patient scheduled on 08/09 with Justin Harkins MBBS Please request records from PCP Castillo Bang MD ; And Dr. Zunilda Kinsey - Last seen 2 years ago. Had Chest x-ray No ex ternal male impersonator/ Cardiac care. Thank you documented in this encounter Plan of Treatment Not on filedocumented as of this encounter Visit Diagnoses Not on filedocumented in this encounter Additional Health Concerns Assessment Noted Time A fall risk assessment has been completed for the pat ient 04/12/2019 10:00 AM CDT documented as of this encounter
--- NOTE | 2021-07-27 10:52 | ED Chest Pain ---
General Stated Complaint: CHEST PAIN History of Present Illness Date Seen by Provider: Jul 27, 2021 Time Seen by Provider: 10:49 Initial Comments 41-year-old female presents with chest pressure. She reports is been going on for about a week but the pain got worse over the last day or so. Patient reports that she feels like sometimes she gets a "double heartbeat" she feels like when that happens she has to take a deep grasp of air. She otherwise has no shortness of breath, the pain does not radiate. She reports that the pain seems to get worse if she stands up or if she takes off her bra and her breast are not supported and put weight on her chest. She reports that she has a history of hypertension about a month ago she stopped taking her amlodipine and hydrochlorothiazide after seeing a recall. Patient denies any nausea vomiting diaphoresis radiation of the pain cough or other systemic complaints. Patient reports that she smokes and uses marijuana frequently during the week. With her last marijuana use yesterday. Allergies and Home Medications Allergies Coded Allergies: No Known Drug Allergies (Unverified , 02/03/19) Patient Home Medication List Home Medication List Reviewed: Yes Diazepam (Valium) 5 Mg Tablet, 5 MG PO BID PRN PRN for MUSCLE SPASMS Prescribed by: JOSÉ MIGUEL WAGONER on 04/09/19 1612 Oxycodone HCl/Acetaminophen (Percocet 5-325 mg Tablet) 1 Each Tablet, 2 TAB PO Q6H PRN for PAIN-SEVERE Prescribed by: JOSÉ MIGUEL WAGONER on 04/09/19 161 [Phentermine HCL] , (Reported) Entered as Reported by: JOHN MOFFETT on 04/11/19 1731 Review of Systems Review of Systems Constitutional: No chills, No fever EENTM: No Symptoms Reported Respiratory: See HPI Cardiovascular: See HPI Gastrointestinal: No Symptoms Reported; Denies Abdominal Pain, Denies Diarrhea, Denies Nausea, Denies Vomiting Genitourinary: No Symptoms Reported Musculoskeletal: see HPI Skin: no symptoms reported Psychiatric/Neurological: No Symptoms Reported Endocrine: No Symptoms Reported Hematologic/Lymphatic: No Symptoms Reported Past Qvyiwgk-Bsizho-Fubdfm Hx Immunizations Up To Date PED Vaccines UTD: Yes Seasonal Allergies Seasonal Allergies: No Past Medical History Surgeries: Yes (metal plates in jaw, x 2, bilateral fx wrists) Section, Orthopedic Respiratory: Yes (Hx SOA, Tobaccoism-current smoker) Cardiac: Yes (Double aortic arch) Congenital Heart Disease, Hypertension, Palpitations Neurological: No Genitourinary: No Gastrointestinal: No Musculoskeletal: Yes (DDD with radicular syndrome right leg) Degenerate Disk Disease, Chronic Back Pain Endocrine: No HEENT: No Cancer: No Psychosocial: No Integumentary: No Blood Disorders: No Adverse Reaction/Blood Tranf: No Physical Exam Vital Signs Vital Signs - First Documented 07/27/21 10:59 Temp 36.4 Pulse 93 Resp 15 B/P (MAP) 190/131 (150) Pulse Ox 100 O2 Delivery Room Air Capillary Refill : Height, Weight, BMI Height: 5'7.00" Weight: 261lbs. 0oz. 118.673779rb; BMI Method:Stated General Appearance: No Apparent Distress, WD/WN, Obese HEENT: Moist Mucous Membranes Respiratory: Lungs Clear, Normal Breath Sounds Cardiovascular: Regular Rate, Rhythm, No Edema Gastrointestinal: Non Tender, Soft Extremity: Normal Capillary Refill, Normal Inspection, Normal Range of Motion Neurologic/Psychiatric: Oriented x3, No Motor/Sensory Deficits, Normal Mood/Affect, director of counseling II-XII Norm as Tested Skin: Normal Color, Warm/Dry Progress/Results/Core Measures Results/Orders Lab Results Laboratory Tests Test 07/27/21 10:53 Range/Units White Blood Count 5.6 4.3-11.0 10^3/uL Red Blood Count 4.83 3.80-5.11 10^6/uL Hemoglobin 14.3 11.5-16.0 g/dL Hematocrit 43 35-52 % Mean Corpuscular Volume 90 80-99 fL Mean Corpuscular Hemoglobin 30 25-34 pg Mean Corpuscular Hemoglobin Concent 33 32-36 g/dL Red Cell Distribution Width 15.0 H 10.0-14.5 % Platelet Count 252 130-400 10^3/uL Mean Platelet Volume 10.2 9.0-12.2 fL Immature Granulocyte % (Auto) 0 % Neutrophils (%) (Auto) 42 42-75 % Lymphocytes (%) (Auto) 48 H 12-44 % Monocytes (%) (Auto) 7 0-12 % Eosinophils (%) (Auto) 2 0-10 % Basophils (%) (Auto) 1 0-10 % Neutrophils # (Auto) 2.4 1.8-7.8 X 10^3 Lymphocytes # (Auto) 2.7 1.0-4.0 X 10^3 Monocytes # (Auto) 0.4 0.0-1.0 X 10^3 Eosinophils # (Auto) 0.1 0.0-0.3 10^3/uL Basophils # (Auto) 0.0 0.0-0.1 10^3/uL Immature Granulocyte # (Auto) 0.0 0.0-0.1 10^3/uL Prothrombin Time 13.4 12.2-14.7 SEC INR Comment 1.0 0.8-1.4 Activated Partial Thromboplast Time 31 24-35 SEC D-Dimer 0.50 H 0.00-0.49 UG/ML Sodium Level 142 135-145 MMOL/L Potassium Level 4.2 3.6-5.0 MMOL/L Chloride Level 106 98-107 MMOL/L Carbon Dioxide Level 28 21-32 MMOL/L Anion Gap 8 5-14 MMOL/L Blood Urea Nitrogen 9 7-18 MG/DL Creatinine 0.73 0.60-1.30 MG/DL Estimat Glomerular Filtration Rate 106 BUN/Creatinine Ratio 12 Glucose Level 86 70-105 MG/DL Calcium Level 9.0 8.5-10.1 MG/DL Corrected Calcium 8.8 8.5-10.1 MG/DL Magnesium Level 2.2 1.6-2.4 MG/DL Total Bilirubin 0.2 0.1-1.0 MG/DL Aspartate Amino Transf (AST/SGOT) 13 5-34 U/L Alanine Aminotransferase (ALT/SGPT) 14 0-55 U/L Alkaline Phosphatase 155 H 40-136 U/L Myoglobin 22.9 10.0-92.0 NG/ML Troponin I < 0.30 <0.30 NG/ML Pro-B-Type Natriuretic Peptide 46.6 <75.0 PG/ML Total Protein 7.2 6.4-8.2 GM/DL Albumin 4.2 3.2-4.5 GM/DL My Orders Orders - BROWN,ROSE L DO Cbc With Automated Diff (07/27/21 10:52) Magnesium (07/27/21 10:52) Chest 1 View Ap/Pa Only (07/27/21 10:52) Ekg Tracing (07/27/21 10:52) Comprehensive Metabolic Panel (07/27/21 10:52) Myoglobin Serum (07/27/21 10:52) Protime With Inr (07/27/21 10:52) Partial Thromboplastin Time (07/27/21 10:52) Monitor-Rhythm Ecg Trace Only (07/27/21 10:52) Lipid Panel (07/28/21 06:00) Aspirin Chewable Tablet (Baby Aspirin Ch (07/27/21 11:00) Ed Iv/Invasive Line Start (07/27/21 10:52) Fibrin Degradation Products (07/27/21 10:52) Troponin I Fs (07/27/21 10:52) Probnp Fs (07/27/21 10:52) Ct Angio Chest W (07/27/21 11:50) Iohexol Injection (Omnipaque 350 Mg/Ml 1 (07/27/21 12:15) Received Contrast (Hold Metformin- Contr (07/27/21 12:15) Sodium Chloride Flush (Catheter Flush Sy (07/27/21 12:15) Ns (Ivpb) (Sodium Chloride 0.9% Ivpb Bag (07/27/21 12:15) Medications Given in ED Current Medications Medications Dose Ordered Sig/Billy Route Start Time Stop Time Status Last Admin Dose Admin Aspirin 324 mg ONCE ONCE PO 07/27/21 11:00 07/27/21 11:01 DC 07/27/21 10:57 324 MG Iohexol 150 ml ONCE ONCE IV 07/27/21 12:15 07/27/21 12:16 DC 07/27/21 12:22 125 ML Sodium Chloride 10 ml NEEDED PRN IV 07/27/21 12:15 07/27/21 12:22 10 ML Sodium Chloride 100 ml ONCE ONCE IV 07/27/21 12:15 07/27/21 12:16 DC 07/27/21 12:22 80 ML Vital Signs/I&O 07/27/21 10:59 Temp 36.4 Pulse 93 Resp 15 B/P (MAP) 190/131 (150) Pulse Ox 100 O2 Delivery Room Air Progress Progress Note : Progress Note Patient with no acute findings on EKG or troponin. Patient symptoms of been going on for at least a week. During the course of her stay she stated that sometimes she feels like it is in her esophagus and she is having a hard time swallowing. CTA shows no acute abnormalities in her chest. 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 Her symptoms do not seem to be either cardiac or pulmonary in nature. I did recommend she try Pepcid twice daily, if her symptoms are not improved in a week follow-up with her primary care provider for further outpatient evaluation and possible EGD. Patient stable and discharged home Initial ECG Impression Date: Jul 27, 2021 Initial ECG Impression Time: 10:43 Initial ECG Rate: 80 Initial ECG Rhythm: Normal Sinus Initial ECG Impression: Nonspecific Changes Comment nonspecific t wave, likely due to body habitus Departure Impression Primary Impression: Discomfort in chest Disposition: 01 HOME, SELF-CARE Condition: Stable Departure-Patient Inst. Referrals: SELFLILIANA MD (PCP/Family) Primary Care Physician Patient Instructions: Chest Pain That Is Not Caused by the Heart (DC), Dyspepsia (DC) Add. Discharge Instructions: Pepcid or similar medication twice daily or as directed on package If symptoms have not improved over the next 4 to 5 days follow-up with your primary care provider for further outpatient evaluation and possible general surgery consultation for an EGD. Keep your scheduled appointment with your pit laborer. Return to the ER with any other concerns or worsening of symptoms ROSE BROWN DO Jul 27, 2021 10:52
[2021-07-27] MEDS ORDERED: ASPIRIN 81 MG CHEW (CHILDREN'S ASA) PO ONE (11:00)
--- NOTE | 2021-07-27 11:04 | Diagnostic Imaging Report ---
INDICATION: Chest pain. Frontal chest obtained at 10:42 a.m. FINDINGS: Heart is normal in size. There is fullness in the right paratracheal region with question of narrowing or displacement of the trachea. There is no consolidation or pneumothorax or pleural fluid. IMPRESSION: Abnormal appearance of the mediastinal silhouette with mass effect in the right paratracheal region as above. We have no prior study for comparison. Consider chest CT with contrast for further evaluation. Dictated by: Dictated on workstation # [id number]
[2021-07-27 11:24] LABS: PROTHROMBIN TIME PATIENT 13.4 SEC (12.2-14.7)
[2021-07-27 11:32] LABS: HEMATOCRIT 43 % (35-52); HEMOGLOBIN 14.3 g/dL (11.5-16.0); MEAN CORPUSCULAR HEMOGLOBIN 30 pg (25-34); MEAN CORPUSCULAR HGB CONC 33 g/dL (32-36); MEAN CORPUSCULAR VOLUME 90 fL (80-99); MEAN PLATELET VOLUME 10.2 fL (9.0-12.2); PLATELET COUNT 252 10^3/uL (130-400); WHITE BLOOD COUNT 5.6 10^3/uL (4.3-11.0)
[2021-07-27 11:33] LABS: BASOPHILS % (AUTO) 1 % (0-10); EOSINOPHILS # (AUTO) 0.1 10^3/uL (0.0-0.3); EOSINOPHILS % (AUTO) 2 % (0-10); LYMPHOCYTES # (AUTO) 2.7 X 10^3 (1.0-4.0); LYMPHOCYTES % (AUTO) 48 % (12-44); MONOCYTES # (AUTO) 0.4 X 10^3 (0.0-1.0); MONOCYTES % (AUTO) 7 % (0-12); NEUTROPHILS # (AUTO) 2.4 X 10^3 (1.8-7.8); NEUTROPHILS % (AUTO) 42 % (42-75)
[2021-07-27 11:41] LABS: BILIRUBIN,TOTAL 0.2 MG/DL (0.1-1.0); CREATININE SERUM 0.73 MG/DL (0.60-1.30); MAGNESIUM 2.2 MG/DL (1.6-2.4); POTASSIUM 4.2 MMOL/L (3.6-5.0)
[2021-07-27 11:42] LABS: ALBUMIN 4.2 GM/DL (3.2-4.5); TOTAL PROTEIN 7.2 GM/DL (6.4-8.2)
[2021-07-27] MEDS ORDERED: IOHEXOL 350 MG/ML 150 ML (OMNIPAQUE 350) VIAL IV ONE (12:15)
[2021-07-27] MEDS ORDERED: CATHETER FLUSH 10 ML SYR IV PRN (12:15)
[2021-07-27] MEDS ORDERED: HOLD METFORMIN - RECEIVED CONTRAST 20 ML VIAL IV SCH (12:15)
[2021-07-27] MEDS ORDERED: NS 100 ML (IVPB) BAG IV ONE (12:15)
--- NOTE | 2021-07-27 12:41 | Diagnostic Imaging Report ---
PROCEDURE: CT angiography of the chest with contrast. TECHNIQUE: Multiple contiguous axial images were obtained through the chest after uneventful bolus administration of intravenous contrast. 3D reconstructed CTA MIP acquisitions were also performed. Auto Exposure Controls were utilized during the CT exam to meet ALARA standards for radiation dose reduction. INDICATION: Abnormal paratracheal swelling on chest x-ray. Elevated d-dimer. 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 There is a double sided aortic arch also noted. There are no central or proximal segmental pulmonary emboli. There are no pericardial or pleural effusions. Fat stranding within the anterior mediastinum most likely residual thymic tissue. There is no adenopathy. The lungs appear clear. Visualized upper abdomen unremarkable for acute abnormality. There is no acute osseous abnormality. IMPRESSION: 1. No acute process within the chest with no pulmonary emboli appreciated. 2. 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 Dictated by: Dictated on workstation # [id number]
[2021-07-27 12:56] VITALS: BP 151/103
== END 2021-07-27 12:55 | disposition home or self-care (01) ==
LOC: EDUNIT# 10:44 → ER FS 10:45
DX: R07.89 Other chest pain (principal); I10 Essential (primary) hypertension; G89.29 Other chronic pain; M54.9 Dorsalgia, unspecified; E66.9 Obesity, unspecified; Z68.45 Body mass index [BMI] 70 or greater, adult; Z79.891 Long term (current) use of opiate analgesic
CPT/HCPCS: 36415; 71045; 71275; 80053; 83735; 83874; 83880; 84484; 85025; 85379; 85610; 85730; 93005; 93041

== ENCOUNTER 2022-03-24 23:00 | Emergency (ER) | payer MEDICAID ==
[~2022-03-24] VITALS: Ht 170 cm; Wt 117.7 kg
[~2022-03-24 23:00] MED LIST changes: +CYCL10TA25 PO; -CYCL10TA9 PO
[2022-03-24 23:05] VITALS: BP 152/105
--- NOTE | 2022-03-24 23:09 | ED EENT ---
History of Present Illness General Chief Complaint: Nasal Problems Stated Complaint: NOSE BLEED History of Present Illness Date Seen by Provider: Mar 24, 2022 Time Seen by Provider: 23:04 Initial Comments 41-year-old female presents with bilateral nosebleeds. Patient reports that earlier today she was having bleeding coming out of her nose and coughed up a big clot leaking out of her nose. She reports that she has had them occasionally over the last couple weeks and months. That she was driving today when it started. She denies any injury. Allergies and Home Medications Allergies Coded Allergies: No Known Drug Allergies (Unverified , 02/03/19) Patient Home Medication List Home Medication List Reviewed: Yes Diazepam (Valium) 5 Mg Tablet, 5 MG PO BID PRN PRN for MUSCLE SPASMS Prescribed by: JOSÉ MIGUEL WAGONER on 04/09/19 161 Oxycodone HCl/Acetaminophen (Percocet 5-325 mg Tablet) 1 Each Tablet, 2 TAB PO Q6H PRN for PAIN-SEVERE Prescribed by: JOSÉ MIGUEL WAGONER on 04/09/19 161 [Phentermine HCL] , (Reported) Entered as Reported by: JOHN MOFFETT on 04/11/19 1731 Review of Systems Review of Systems Constitutional: no symptoms reported Eyes: No Symptoms Reported Ears: No Symptoms Reported Nose: see HPI, epistaxis Mouth: no symptoms reported Throat: no symptoms reported Respiratory: no symptoms reported Cardiovascular: no symptoms reported Musculoskeletal: no symptoms reported Physical Exam Vital Signs Vital Signs - First Documented 03/24/22 23:05 Temp 36.0 Pulse 95 Resp 16 B/P (MAP) 152/105 (121) Pulse Ox 100 O2 Delivery Room Air Height, Weight, BMI Height: '" Weight: lbs. oz. kg; BMI Method: General Appearance: WD/WN, no apparent distress Nose: No active bleeding; other (Mild irritation of the bilateral turbinates no active bleed) Mouth/Throat: normal mouth inspection Neck: full range of motion, supple Cardiovascular: normal peripheral pulses, regular rate, rhythm Respiratory: lungs clear, normal breath sounds Gastrointestinal: non tender, soft Neurologic/Psychiatric: alert, normal mood/affect, oriented x 3 Skin: normal color, warm/dry Progress/Results/Core Measures Results/Orders My Orders Orders - ROSE BROWN DO Oxymetazoline 0.05% Nasal [place] (Afrin 0. (03/25/22 09:00) Oxymetazoline 0.05% Nasal [place] (Afrin 0. (03/24/22 23:14) Medications Given in ED Current Medications Medications Dose Ordered Sig/Billy Route Start Time Stop Time Status Last Admin Dose Admin Oxymetazoline HCl 30 ml STK-MED ONCE .ROUTE 03/24/22 23:14 03/24/22 23:16 DC 03/24/22 23:17 30 ML Vital Signs/I&O 03/24/22 23:05 Temp 36.0 Pulse 95 Resp 16 B/P (MAP) 152/105 (121) Pulse Ox 100 O2 Delivery Room Air Departure Impression Primary Impression: Epistaxis Disposition: HOME, SELF-CARE Condition: Stable Departure-Patient Inst. Patient Instructions: Nosebleeds ED Add. Discharge Instructions: Consider follow-up with the ENT to evaluate your frequent nosebleeds All discharge instructions reviewed with patient and/or family. Voiced understanding. ROSE BROWN DO Mar 24, 2022 23:09
[2022-03-24] MEDS ORDERED: OXYMETAZOLINE (AFRIN) 0.05% NA 30 ML BTL ONE (23:14)
[2022-03-25] MEDS ORDERED: OXYMETAZOLINE (AFRIN) 0.05% NA 30 ML BTL SCH (09:00)
== END 2022-03-24 23:37 | disposition home or self-care (01) ==
LOC: EDUNIT# 23:00 → ER FS 23:04
DX: R04.0 Epistaxis (principal)
CPT/HCPCS: 99282

== ENCOUNTER 2022-06-02 05:11 | Emergency (ER) | payer MEDICAID ==
[2022-06-02] MEDS ORDERED: HYDROmorphone 2 MG/ML VIAL (DILAUDID) IV STA (05:30)
--- NOTE | 2022-06-02 05:38 | ED Chest Pain ---
General Chief Complaint: Chest Pain Stated Complaint: CHEST PAIN Nursing Triage Note: Pt complaining of right side pain that goes through to her back. Pt had a double aorta surgery done on 05/24/22. Pt started having the pain around midnight tonight Source: patient, old records (OSIEL PUENTE MD) History of Present Illness Date Seen by Provider: Jun 02, 2022 Time Seen by Provider: 05:16 Initial Comments 42-year-old female presenting with complaints of sudden onset of right-sided chest pain since midnight. She had an aortic arch reconstruction surgery done on May 24 at [facility]. She had been doing okay with her pain until midnight. She had not been having nausea, vomiting, shortness of breath, fever, chills. She was having pain going up under her right breast on the ribs as well. Increased pain with deep breaths and with movement. Palpation of her chest also causes pain. She did run out of her pain medicine on Friday. Timing/Duration: 4-6 hours Severity/Quality: severe, sharp Location: other (Right side of chest going into her back) Radiation: back Activities at Onset: rest Prior CP/Workup: echocardiography, other (05/24/2022 patient had a aortic arch reconstruction and thoracic surgery done at [facility].) Modifying Factors: worse with breathing, worse with coughing, worse with lying down, worse with movement ASA po HEAD OF DRAMA: No NTG SL HEAD OF DRAMA: No Associated Symptoms: No abdominal pain; back pain (Right chest pain radiating to her back), diaphoresis; No dizziness, No edema, No fatigue, No fever/chills, No headache, No heartburn, No nausea/vomiting, No rash; shortness of breath; No swelling/lump in chest, No syncope (OSIEL PUENTE MD) Allergies and Home Medications Allergies Coded Allergies: No Known Drug Allergies (Unverified , 02/03/19) Patient Home Medication List Home Medication List Reviewed: Yes (OSIEL PUENTE MD) Diazepam (Valium) 5 Mg Tablet, 5 MG PO BID PRN PRN for MUSCLE SPASMS Prescribed by: JOSÉ MIGUEL WAGONER on 04/09/19 1612 Ondansetron (Ondansetron Odt) 4 Mg Tab.rapdis, 4 MG SL Q4H PRN for NAUSEA/VOMITING Prescribed by: SOPHIA LUCAS on 06/02/22 0847 Oxycodone HCl/Acetaminophen (Percocet 5-325 mg Tablet) 1 Each Tablet, 2 TAB PO Q6H PRN for PAIN-SEVERE Prescribed by: JOSÉ MIGUEL WAGONER on 04/09/19 1612 Oxycodone HCl/Acetaminophen (Percocet 5-325 mg Tablet) 1 Each Tablet, 1-2 TAB PO Q4H PRN for PAIN-MODERATE (5-7) Prescribed by: SOPHIA LUCAS on 06/02/22 0838 [Phentermine HCL] , (Reported) Entered as Reported by: JOHN MOFFETT on 04/11/19 1731 Review of Systems Review of Systems Constitutional: No chills; diaphoresis; No fever EENTM: No Symptoms Reported Respiratory: See HPI Cardiovascular: See HPI Gastrointestinal: Constipated Genitourinary: No Symptoms Reported Musculoskeletal: see HPI Skin: No change in color Psychiatric/Neurological: Anxiety Hematologic/Lymphatic: Denies Blood Clots (OSIEL PUENTE MD) Past Zyzyccw-Mnnnkx-Rnojyi Hx Patient Social History Tobacco Use?: No Use of E-Cig and/or Vaping dev: No Substance use?: No Alcohol Use?: No Pt feels they are or have been: No (OSIEL PUENTE MD) Immunizations Up To Date PED Vaccines UTD: Yes (OSIEL PUENTE MD) Seasonal Allergies Seasonal Allergies: No (OSIEL PUENTE MD) Past Medical History Surgery/Hospitalization HX: Aortic arch reconstruction 05/24/2022 at [facility], Double aortic arch, Obesity, Hypertension Surgeries: Yes (metal plates in jaw, x 2, bilateral fx wrists) Section, Orthopedic, Vascular Surgery (aortic arch reconstruction 05/24/2022) Respiratory: Yes (Hx SOA, Tobaccoism-current smoker) Cardiac: Yes (Double aortic arch) Congenital Heart Disease, Hypertension, Palpitations Neurological: No Genitourinary: No Gastrointestinal: No Musculoskeletal: Yes (DDD with radicular syndrome right leg) Degenerate Disk Disease, Chronic Back Pain Endocrine: No HEENT: No Cancer: No Psychosocial: No Integumentary: No Blood Disorders: No Adverse Reaction/Blood Tranf: No (OSIEL PUENTE MD) Physical Exam Vital Signs Vital Signs - First Documented 06/02/22 05:12 Temp 36.9 Pulse 108 Resp 22 B/P (MAP) 154/95 (114) Pulse Ox 97 O2 Delivery Room Air (SOPHIA BRADFORD MD) Vital Signs Capillary Refill : Less Than 3 Seconds (OSIEL PUENTE MD) Height, Weight, BMI Height: 5'7.00" Weight: 261lbs. 0oz. 118.785602mx; 40.00 BMI Method:Stated General Appearance: Anxious, Moderate Distress, Obese HEENT: PERRL/EOMI, Pharynx Normal, Moist Mucous Membranes Neck: Full Range of Motion, Normal Inspection, Non Tender, Supple Respiratory: Lungs Clear, Normal Breath Sounds, No Accessory Muscle Use, No Respiratory Distress, Other (chest tender to palpation on right side both ante rior and posterior) Cardiovascular: Regular Rate, Rhythm, Normal Peripheral Pulses, Systolic Murmur (3/6 holosystolic) Gastrointestinal: Normal Bowel Sounds, No Pulsatile Mass, Soft; No Guarding, No Rebound; Tenderness (RUQ pain along lower ribs) Rectal: Deferred Extremity: Normal Capillary Refill, Normal Inspection, No Pedal Edema Neurologic/Psychiatric: Alert, Oriented x3, first helper II-XII Norm as Tested Skin: Diaphoresis (OSIEL PUENTE MD) Images 1 - pain to palpation of right side of chest 2 - RUQ and right lower anterior and lateral rib pain with palpation, no crepitus (OSIEL PUENTE MD) Progress/Results/Core Measures Results/Orders Lab Results Laboratory Tests Test 06/02/22 05:18 06/02/22 07:20 Range/Units White Blood Count 8.8 4.3-11.0 10^3/uL Red Blood Count 3.85 3.80-5.11 10^6/uL Hemoglobin 11.5 11.5-16.0 g/dL Hematocrit 35 35-52 % Mean Corpuscular Volume 91 80-99 fL Mean Corpuscular Hemoglobin 30 25-34 pg Mean Corpuscular Hemoglobin Concent 33 32-36 g/dL Red Cell Distribution Width 14.5 10.0-14.5 % Platelet Count 372 130-400 10^3/uL Mean Platelet Volume 9.6 9.0-12.2 fL Neutrophils (%) (Auto) 51 42-75 % Lymphocytes (%) (Auto) 36 12-44 % Monocytes (%) (Auto) 11 0-12 % Eosinophils (%) (Auto) 3 0-10 % Basophils (%) (Auto) 0 0-10 % Neutrophils # (Auto) 4.4 1.8-7.8 X 10^3 Lymphocytes # (Auto) 3.1 1.0-4.0 X 10^3 Monocytes # (Auto) 0.9 0.0-1.0 X 10^3 Eosinophils # (Auto) 0.2 0.0-0.3 10^3/uL Basophils # (Auto) 0.0 0.0-0.1 10^3/uL Prothrombin Time 13.2 12.2-14.7 SEC INR Comment 1.0 0.8-1.4 Activated Partial Thromboplast Time 28 24-35 SEC Sodium Level 138 135-145 MMOL/L Potassium Level 4.6 3.6-5.0 MMOL/L Chloride Level 102 98-107 MMOL/L Carbon Dioxide Level 26 21-32 MMOL/L Anion Gap 10 5-14 MMOL/L Blood Urea Nitrogen 10 7-18 MG/DL Creatinine 0.68 0.60-1.30 MG/DL Estimat Glomerular Filtration Rate 111 BUN/Creatinine Ratio 15 Glucose Level 95 70-105 MG/DL Calcium Level 8.7 8.5-10.1 MG/DL Corrected Calcium 9.1 8.5-10.1 MG/DL Magnesium Level 2.0 1.6-2.4 MG/DL Total Bilirubin 0.5 0.1-1.0 MG/DL Aspartate Amino Transf (AST/SGOT) 19 5-34 U/L Alanine Aminotransferase (ALT/SGPT) 42 0-55 U/L Alkaline Phosphatase 146 H 40-136 U/L Troponin I < 0.30 < 0.028 <0.028 NG/ML Pro-B-Type Natriuretic Peptide < 5.0 <125.0 PG/ML Total Protein 7.0 6.4-8.2 GM/DL Albumin 3.5 3.2-4.5 GM/DL Lipase 78 8-78 U/L C-Reactive Protein High Sensitivity 3.50 H 0.00-0.50 MG/DL (SOPHIA BRADFORD MD) My Orders Orders - SOPHIA BRADFORD MD Ekg Tracing (06/02/22 06:52) Troponin I [place] (06/02/22 07:20) Hs C Reactive Protein (06/02/22 07:20) Ondansetron Injection (Zofran Injectio (06/02/22 07:45) (SOPHIA BRADFORD MD) Medications Given in ED Current Medications Medications Dose Ordered Sig/Billy Route Start Time Stop Time Status Last Admin Dose Admin Ondansetron HCl 8 mg ONCE ONCE IVP 06/02/22 07:45 06/02/22 07:46 DC 06/02/22 07:41 8 MG (SOPHIA BRADFORD MD) Vital Signs/I&O 06/02/22 06/02/22 06/02/22 06/02/22 05:12 05:44 06:30 08:55 Temp 36.9 36.9 36.7 Pulse 108 96 92 80 Resp 22 20 18 B/P (MAP) 154/95 (114) 145/90 (108) 137/91 (106) 135/96 Pulse Ox 97 95 96 97 O2 Delivery Room Air Room Air Room Air Room Air (SOPHIA BRADFORD MD) Blood Pressure Mean: 114 Progress Progress Note : Progress Note Order 1 view chest x-ray to evaluate for possible pneumothorax, hemothorax, pleural effusion, widened mediastinum. Electrocardiogram to evaluate her cardiac rhythm and have her on cardiac surveillance system monitor. Order basic labs including cardiac enzymes and coags. She would need an emergent CT angiogram to evaluate her recent surgery on the aortic arch and her chest and lungs. Unfortunately the injector for the CT scan to be able to do CT angiography was down at this time here in [place] so I spoke with Dr. RUBI in the emergency department at [facility] and he accepted the patient for emergent ED to ED transfer. Dr. Lucas will be assuming care of the patient as he will be coming on shift before the patient arrives. (OSIEL PUENTE MD) Progress Note #1: Time: 06:35 Progress Note Patient has just arrived via EMS from [place] emergency room. Vital signs are stable. She had one markedly elevated blood pressure of 200/12 in route, but that has normalized now with a blood pressure of 137/91. Patient has gone directly to CT for angiogram. Progress Note #2: Progress Note Angiogram revealed no acute problems with the aortic repair or problems requiring emergent intervention such as pulmonary embolus. There were postoperative inflammatory changes as well as emphysematous air in the tissues of the right upper chest. Patient was offered further pain medication which she declined in the ER. She was provided with a prescription of Percocet as her prescription for Dilaudid had run out. She has a follow-up appointment on Friday (SOPHIA BRADFORD MD) Initial ECG Impression Date: Jun 02, 2022 Initial ECG Impression Time: 05:22 Initial ECG Rate: 99 Initial ECG Rhythm: Normal Sinus Initial ECG Comparisson: Unchanged Comment Sinus rhythm with a heart rate 99 bpm. CA interval [address] elevation. There is artifact on the tracing. QT interval 330 ms with a QTc interval 386 ms. Overall appears similar to tracing from July 27, 2021. (OSIEL PUENTE MD) Diagnostic Imaging Diagonstic Imaging: Xray Plain Films/CT/US/NM/MRI: chest Comments On my review of the 1 view chest x-ray she has a widened mediastinum but no definite pneumothorax or hemothorax. No shift of the trachea or airway Reviewed: Reviewed by Me (OSIEL PUENTE MD) Departure Impression Primary Impression: Right-sided chest pain Additional Impressions: Status post aortic arch reconstruction Postoperative pain Disposition: 01 HOME, SELF-CARE Condition: Improved Departure-Patient Inst. Referrals: LILIANA XIONG MD (PCP/Family) Primary Care Physician Patient Instructions: Chest Pain That Is Not Caused by the Heart (DC) Add. Discharge Instructions: You may use Percocet as prescribed 1 to 2 tablets every 4 hours as needed for pain control. Discuss further pain management with your primary care provider at your follow- up appointment. Return to care if you have other worsening symptoms such as fever, shortness of breath, etc. You may wish to take a stool softener along with your pain medications to prevent constipation. MiraLAX may also be used to help treat constipation. Eat plenty of fruits, vegetables, and whole grains. Avoid excessive meats, cheeses, processed foods, and fast foods. Call your surgical team or primary care provider if you have any questions or concerns. All discharge instructions reviewed with patient and/or family. Voiced understanding. Scripts Ondansetron (Ondansetron Odt) 4 Mg Tab.rapdis 4 MG SL Q4H PRN for NAUSEA/VOMITING, #10 TAB 1 Refill Prov: SOPHIA BRADFORD MD 06/02/22 Oxycodone HCl/Acetaminophen (Percocet 5-325 mg Tablet) 1 Each Tablet 1-2 TAB PO Q4H PRN for PAIN-MODERATE (5-7) MDD 6 TABS, #30 TAB Prov: SOPHIA BRADFORD MD 06/02/22 OSIEL PUENTE MD Jun 02, 2022 05:38 SOPHIA BRADFORD MD Jun 02, 2022 06:38
[2022-06-02 05:39] LABS: BASOPHILS % (AUTO) 0 % (0-10); EOSINOPHILS # (AUTO) 0.2 10^3/uL (0.0-0.3); EOSINOPHILS % (AUTO) 3 % (0-10); HEMATOCRIT 35 % (35-52); HEMOGLOBIN 11.5 g/dL (11.5-16.0); LYMPHOCYTES # (AUTO) 3.1 X 10^3 (1.0-4.0); LYMPHOCYTES % (AUTO) 36 % (12-44); MEAN CORPUSCULAR HEMOGLOBIN 30 pg (25-34); MEAN CORPUSCULAR HGB CONC 33 g/dL (32-36); MEAN CORPUSCULAR VOLUME 91 fL (80-99); MEAN PLATELET VOLUME 9.6 fL (9.0-12.2); MONOCYTES # (AUTO) 0.9 X 10^3 (0.0-1.0); MONOCYTES % (AUTO) 11 % (0-12); NEUTROPHILS # (AUTO) 4.4 X 10^3 (1.8-7.8); NEUTROPHILS % (AUTO) 51 % (42-75); PLATELET COUNT 372 10^3/uL (130-400); WHITE BLOOD COUNT 8.8 10^3/uL (4.3-11.0)
[2022-06-02 05:48] LABS: PROTHROMBIN TIME PATIENT 13.2 SEC (12.2-14.7)
[2022-06-02 05:56] LABS: ALBUMIN 3.5 GM/DL (3.2-4.5); BILIRUBIN,TOTAL 0.5 MG/DL (0.1-1.0); CALCIUM 8.7 MG/DL (8.5-10.1); CREATININE SERUM 0.68 MG/DL (0.60-1.30); POTASSIUM 4.6 MMOL/L (3.6-5.0)
--- NOTE | 2022-06-02 07:15 | Diagnostic Imaging Report ---
EXAMINATION: Chest 1 view HISTORY: Right-sided chest pain. Recent aortic repair. COMPARISON: 07/27/2021. FINDINGS: The lung volumes are normal. Small amount of dependent opacities are seen in the right lung base. No large pleural effusion or pneumothorax. The cardiomediastinal silhouette is normal in size and contour. No acute osseous abnormality is seen. IMPRESSION: 1. Small amount of right basilar opacities likely representing atelectasis. Dictated by: Dictated on workstation # [id number]
[2022-06-02] MEDS ORDERED: ONDANSETRON 4 MG/2 ML (SDV) Z0FRAN IVP ONE (07:45)
[2022-06-02] MEDS ORDERED: OXYC1TAB87 PO (08:37)
[2022-06-02] MEDS ORDERED: ONDA4TAB11 SL (08:47)
[2022-06-02 08:55] VITALS: BP 135/96
--- NOTE | 2022-06-03 11:23 | Diagnostic Imaging Report ---
PROCEDURE: CT angiography of the chest with contrast. TECHNIQUE: Multiple contiguous axial images were obtained through the chest after uneventful bolus administration of intravenous contrast. 3D reconstructed CTA MIP acquisitions were also performed. Auto Exposure Controls were utilized during the CT exam to meet ALARA standards for radiation dose reduction. INDICATION: Chest pain. Shortness of breath. Recent surgical repair for double aortic arch. COMPARISON: 07/27/2021. FINDINGS: This helical CT pulmonary angiogram is diagnostic to the subsegmental level branches of the pulmonary artery and demonstrates no pulmonary emboli. The heart size is normal. There is no pericardial effusion. Right-sided aortic arch is noted. Surgical clips are seen along the descending thoracic aorta with mild periaortic inflammatory changes. There is no axillary, mediastinal, or hilar adenopathy. Small right-sided pleural effusion is seen. Dependent opacities are seen in the bilateral lower lobes, right greater than left. No discrete pulmonary mass. No central endobronchial obstructing lesion. No pneumothorax. Osseous structures appear normal. Small amount of subcutaneous emphysema is seen in the upper right chest in the supraclavicular and axillary regions. Inflammatory changes are seen in the soft tissues of the posterior lateral aspect of the mid to upper chest. Limited views of the upper abdomen are unremarkable. IMPRESSION: 1. No acute pulmonary embolus. 2. Small right-sided pleural effusion with dependent opacities bilaterally. 3. Findings consistent with recent double aortic arch repair. No evidence of aneurysm or dissection of the thoracic aorta. Mild para-aortic inflammatory changes are seen along the descending thoracic aorta. No enhancing fluid collections are seen to suggest abscess. 4. Small amount of subcutaneous emphysema in the upper right chest in the supraclavicular and axillary regions, likely representing residual postsurgical changes. Inflammatory changes are seen in the posterior lateral chest wall on the right. No evidence of abscess or active extravasation. Dictated by: Dictated on workstation # [id number]
== END 2022-06-02 08:55 | disposition home or self-care (01) ==
LOC: EDUNIT# 05:11 → ER FS 05:15 → ER 08:55
DX: G89.18 Other acute postprocedural pain (principal); R07.89 Other chest pain; Z98.890 Other specified postprocedural states; Z28.310 Unvaccinated for COVID-19
CPT/HCPCS: 36415; 71045; 71275; 80053; 83690; 83735; 83880; 84484; 85025; 85610; 85730; 86141; 93005; 93041; Q9967

== ENCOUNTER 2022-10-06 23:06 | Emergency (ER) | payer MEDICAID ==
[~2022-10-06] VITALS: Ht 172.7 cm; Wt 125.9 kg
[~2022-10-06 23:06] MED LIST changes: +ONDA4TAB11 SL; +OXYC1TAB87 PO
[2022-10-06 23:14] VITALS: BP 141/93
[2022-10-06] MEDS ORDERED: KETOROLAC 60 MG/2 ML VIAL IM ONE (23:30)
[2022-10-06] MEDS ORDERED: AUGMENTIN 875 MG TAB (AMOXICILLIN/CLAVULANATE) ONE (23:34)
--- NOTE | 2022-10-06 23:39 | ED General ---
General Chief Complaint: Head/Cervical Problems Stated Complaint: NECK PAIN/LEFT SIDE OF FACE NUMB Nursing Triage Note: Patient states that the left side of her neck and her left ear began to hurt yesterday. Patient reports taking tylenol for pain. Patient does complain of pain on palpation and points to the area that is consistent with her lymph node. Patient winced with palpation. Patient reports trying to clean her left ear with a q-tip after a shower and was unable to because it was painful. Source of Information: Patient History of Present Illness Date Seen by Provider: Oct 06, 2022 Time Seen by Provider: 23:19 Initial Comments 42-year-old female patient complaining of left upper neck pain since last night with radiation to left ear and rated her pain 9/10. Patient states she tried to clean her ear with a Q-tip and felt pain in her left ear. Patient denies fever and chills, nausea and vomiting, injury, sore throat, nasal congestion and cough, history of the same problem. Patient took 1000 mg Tylenol yesterday and 500 mg today. Patient states she had heart surgery in May 2022 at [facility] and was told infection is dangerous for her surgery. Allergies and Home Medications Allergies Coded Allergies: No Known Drug Allergies (Unverified , 02/03/19) Patient Home Medication List Home Medication List Reviewed: Yes Amoxicillin/Potassium Clav (Amox Tr-K Clv 875-125 mg Tab) 875 Mg-125 Mg Tablet, 1 EACH PO Q12H Prescribed by: Liz hoover on 10/06/22 2345 Diazepam (Valium) 5 Mg Tablet, 5 MG PO BID PRN PRN for MUSCLE SPASMS Prescribed by: JOSÉ MIGUEL WAGONER on 04/09/19 1612 Ketorolac Tromethamine (Ketorolac Tromethamine) 10 Mg Tablet, 10 MG PO TID PRN for pain Prescribed by: Liz hoover on 10/06/22 2345 Ondansetron (Ondansetron Odt) 4 Mg Tab.rapdis, 4 MG SL Q4H PRN for NAUSEA/VOMITING Prescribed by: SOPHIA WEBSTER on 06/02/22 0847 Oxycodone HCl/Acetaminophen (Percocet 5-325 mg Tablet) 1 Each Tablet, 2 TAB PO Q6H PRN for PAIN-SEVERE Prescribed by: JOSÉ MIGUEL WAGONER on 04/09/19 1612 Oxycodone HCl/Acetaminophen (Percocet 5-325 mg Tablet) 1 Each Tablet, 1-2 TAB PO Q4H PRN for PAIN-MODERATE (5-7) Prescribed by: SOPHIA WEBSTER on 06/02/22 0838 [Phentermine HCL] , (Reported) Entered as Reported by: JOHN MOFFETT on 04/11/19 1731 Review of Systems Review of Systems Constitutional: see HPI EENTM: see HPI Respiratory: see HPI Cardiovascular: see HPI Gastrointestinal: see HPI Genitourinary: see HPI : No Musculoskeletal: see HPI Skin: see HPI Psychiatric/Neurological: See HPI Hematologic/Lymphatic: See HPI All Other Systems Reviewed Negative Unless Noted: Yes Past Acgdolm-Rbgqmg-Mgucff Hx Patient Social History Tobacco Use?: Yes Substance use?: No Alcohol Use?: No Pt feels they are or have been: No Immunizations Up To Date PED Vaccines UTD: Yes Seasonal Allergies Seasonal Allergies: No Past Medical History Surgery/Hospitalization HX: Aortic arch reconstruction 05/24/2022 at [facility], Double aortic arch, Obesity, Hypertension Surgeries: Yes (metal plates in jaw, x 2, bilateral fx wrists) Section, Orthopedic, Vascular Surgery Respiratory: Yes (Hx SOA, Tobaccoism-current smoker) Cardiac: Yes (Double aortic arch) Congenital Heart Disease, Hypertension, Palpitations Neurological: No Genitourinary: No Gastrointestinal: No Musculoskeletal: Yes (DDD with radicular syndrome right leg) Degenerate Disk Disease, Chronic Back Pain Endocrine: No HEENT: No Cancer: No Psychosocial: No Integumentary: No Blood Disorders: No Adverse Reaction/Blood Tranf: No Physical Exam Vital Signs Vital Signs - First Documented 10/06/22 23:14 Temp 36.8 Pulse 87 Resp 18 B/P (MAP) 141/93 (109) Pulse Ox 95 O2 Delivery Room Air Capillary Refill : Less Than 3 Seconds Height, Weight, BMI Height: 5'7.00" Weight: 261lbs. 0oz. 118.350957jb; 42.00 BMI Method:Stated General Appearance: WD/WN, Anxious Eyes: Bilateral Eye Normal Inspection, Bilateral Eye PERRL, Bilateral Eye EOMI HEENT: PERRL/EOMI, Pharynx Normal, Moist Mucous Membranes, Other (Left external ear canal erythema and tenderness with tympanic membrane erythema) Neck: Full Range of Motion, Normal Inspection, Non Tender, Supple, Lymphadenopathy (L) (Tender lymph node in left anterior upper cervical area) Respiratory: Chest Non Tender, Lungs Clear, Normal Breath Sounds, No Accessory Muscle Use, No Respiratory Distress Cardiovascular: Regular Rate, Rhythm, No Edema, No Gallop, No JVD, No Murmur Back: Normal Inspection Extremity: Normal Capillary Refill Neurologic/Psychiatric: Alert, Oriented x3 Progress/Results/Core Measures Suspected Sepsis SIRS Temperature: Pulse: 87 Respiratory Rate: 18 Blood Pressure 141 /93 Mean: 109 Results/Orders My Orders Orders - LIZ HOOVER MD Ketorolac Injection (Toradol Injection) (10/06/22 23:30) Amoxicillin/Clavulanate Tablet (Augmenti (10/07/22 08:00) Amoxicillin/Clavulanate Tablet (Augmenti (10/06/22 23:34) Medications Given in ED Current Medications Medications Dose Ordered Sig/Billy Route Start Time Stop Time Status Last Admin Dose Admin Ketorolac Tromethamine 60 mg ONCE ONCE IM 10/06/22 23:30 10/06/22 23:31 DC 10/06/22 23:37 60 MG Vital Signs/I&O 10/06/22 23:14 Temp 36.8 Pulse 87 Resp 18 B/P (MAP) 141/93 (109) Pulse Ox 95 O2 Delivery Room Air Capillary Refill : Less Than 3 Seconds Blood Pressure Mean: 109 Progress Note : Progress Note Patient with tender lymph node of left upper neck and left ear canal and TM erythema without fever or URI symptoms. Patient treated with Toradol and Augmentin in ER and plan to discharge home with diagnosis of reactive lymphadenopathy to left ear infection with prescription of Augmentin and Toradol. Departure Impression Primary Impression: Anterior cervical lymphadenopathy Additional Impression: Otitis externa, left Qualified Codes: H60.502 - Unspecified acute noninfective otitis externa, left ear Disposition: 01 HOME, SELF-CARE Condition: Stable Departure-Patient Inst. Referrals: SELF,LILIANA CHAUDHARY (PCP/Family) Primary Care Physician Patient Instructions: Ear Infections (Otitis Media) in Adults (DC) Scripts Ketorolac Tromethamine (Ketorolac Tromethamine) 10 Mg Tablet 10 MG PO TID PRN for pain, #15 TAB Prov: LIZ HOOVER MD 10/06/22 Amoxicillin/Potassium Clav (Amox Tr-K Clv 875-125 mg Tab) 875 Mg-125 Mg Tablet 1 EACH PO Q12H, #14 TAB Prov: LIZ HOOVER MD 10/06/22 LIZ HOOVER MD Oct 06, 2022 23:39
[2022-10-06] MEDS ORDERED: AMOX1TAB12 PO (23:45)
[2022-10-06] MEDS ORDERED: KETO10TA PO (23:45)
[2022-10-07] MEDS ORDERED: AUGMENTIN 875 MG TAB (AMOXICILLIN/CLAVULANATE) PO SCH (08:00)
== END 2022-10-06 23:49 | disposition home or self-care (01) ==
LOC: EDUNIT# 23:06 → ER FS 23:13
DX: R59.1 Generalized enlarged lymph nodes (principal); H60.92 Unspecified otitis externa, left ear; E66.9 Obesity, unspecified; Z68.41 Body mass index [BMI] 40.0-44.9, adult; Z28.310 Unvaccinated for COVID-19
CPT/HCPCS: 99284